=== PATIENT | male | born 1935 | race African-American/Black ===

== ENCOUNTER 2022-11-30 11:45 | Emergency (ER) | payer BC ==
[~2022-11-30] VITALS: Ht 172.7 cm; Wt 91.0 kg
[2022-11-30 13:22] LABS: CLARITY URINE CLEAR (CLEAR); COLOR URINE YELLOW (YELLOW); KETONES URINE TRACE (NEGATIVE); LEUKOCYTE ESTERASE URINE TRACE (NEGATIVE); NITRITE URINE NEGATIVE (NEGATIVE); OCCULT BLOOD URINE TRACE (NEGATIVE); PH URINE 7.5 (4.5-8.0); PROTEIN URINE 3+ (NEGATIVE); SPECIFIC GRAVITY URINE 1.017 (1.005-1.030); UROBILINOGEN URINE 0.2 E.U./dL (0.2-1.0)
[2022-11-30 15:57] LABS: HEMATOCRIT. 35.1 % (42.0-52.0); HEMOGLOBIN. 11.7 g/dL (14.0-18.0); MEAN CORPUSCULAR HEMOGLOBIN 33.3 pg (28.0-32.0); MEAN CORPUSCULAR VOLUME 99.5 fL (80.0-94.0); MEAN PLATELET VOLUME 7.6 fl (7.4-10.4); PLATELET 272 x1000/uL (130-400); RED BLOOD CELL COUNT 3.53 mill/uL (4.7-6.1); RED CELL DISTRIBUTION WIDTH 17.7 % (11.6-14.6)
[2022-11-30 15:59] LABS: CHLORIDE 97 mEq/L (98-107)
[2022-11-30] MEDS ORDERED: CEFU500T41 MT (19:11)
[2022-11-30 19:35] VITALS: BP 129/64
[2022-11-30 20:49] LABS: PLATELET ESTIMATE NORMAL
== END 2022-11-30 21:00 | disposition admitted as inpatient to this hospital (09) ==
LOC: ER 11:45
DX: R55 Syncope and collapse (principal); E11.9 Type 2 diabetes mellitus without complications; Z99.2 Dependence on renal dialysis
CPT/HCPCS: 36415; 71045; 80053; 81003; 83605; 83880; 84443; 84484; 85025; 93005; 99285